=== PATIENT | female | born 1960 | race Caucasian/White ===

== ENCOUNTER 2021-07-06 10:52 | Inpatient (IN) ==
[2021-07-06 11:25] LABS: Basophils # (auto) 0.01 K/uL (0-0.2); Basophils % (auto) 0.2 %; Eosinophils # (auto) 0.02 K/uL (0-0.5); Eosinophils % (auto) 0.4 %; Hemoglobin 13.5 g/dL (12.0-16.0); Lymphocytes # (auto) 1.14 K/uL (1.2-3.4); Mean Corpuscular Hemoglobin 29.9 pg (25-34); Mean Corpuscular Hgb Conc 34.6 g/dL (32-36); Mean Corpuscular Volume 86.5 fL (80-100); Mean Platelet Volume 9.7 fL (7.4-10.4); Monocytes # (auto) 0.49 K/uL (0.11-0.59); Monocytes % (auto) 8.6 %; Neutrophils # (auto) 4.04 K/uL (1.4-6.5); Neutrophils % (auto) 70.8 %; Platelet Count 288 K/uL (130-400); RDW Coefficient of Variation 12.8 % (11.5-14.5); Red Blood Count 4.51 M/uL (4.2-5.4)
[2021-07-06] MEDS ORDERED: SODIUM CHLORIDE 0.9% 1000ML 1,000 ML IV SCH (11:30)
[2021-07-06] MEDS ORDERED: ALBUT/IPRATROP 3MG/0.5MG NEB 3 ML VIAL NEB STA (11:36)
[2021-07-06] MEDS ORDERED: dexAMETHasone 6 MG in SYRINGE 0 ML IV ONE (11:36)
--- NOTE | 2021-07-06 11:36 | Emergency Department Note ---
History of Present Illness General Chief complaint: Respiratory Problems Stated complaint: DIFFICULTY BREATHING (ALLERGIC REACTION TO MEDS?) Time Seen by Provider: 07/06/21 11:05 History of Present Illness Provider complaint: Shortness of breath Onset (ago): day(s) 1 Location: chest Radiation: non-radiation Severity: mild Pain Consistency: + intermittent Current Pain Intensity: 0 Quality: + burning Relieved By: + none Exacerbated By: + medication Associated symptoms: + rash and + shortness of breath; no chest pain, no cough, no fever/chills, no headaches, no malaise or no nausea/vomiting 60-year-old female presents emergency department for shortness of breath. Patient states that on Monday she was diagnosed with a UTI at an urgent care center. Patient states she was started on Macrobid and Azo. Patient states any time she took the Azo she began vomiting. She has been taking her Macrobid as prescribed. She states she woke up this morning and had a rash on her chest and was having difficulty breathing. Patient has not vaccine against COVID-19. Patient reports no hemoptysis. She reports no recent travel. She reports no fever or chest pain. Patient states she is concerned she is having allergic reaction to the Macrobid. Home Medications Medication Instructions Recorded Confirmed Type buspirone 10 mg tablet 10 mg PO TID #270 tab 05/25/21 07/06/21 Rx clobetasol 0.05 % scalp solution 1 applic TOPICAL DAILY PRN #50 ml 05/25/21 07/06/21 Rx hydroxyzine HCl 25 mg tablet 25 mg PO QID #120 tab 05/25/21 07/06/21 Rx atorvastatin 20 mg tablet 20 mg PO QAM 07/06/21 07/06/21 History nitrofurantoin 100 cap PO BID 07/06/21 07/06/21 History monohydrate/macrocrystals 100 mg capsule (Macrobid) omeprazole 20 mg capsule,delayed 20 mg PO QAM 07/06/21 07/06/21 History release phenazopyridine 200 mg tablet 200 mg PO BID 07/06/21 07/06/21 History tamoxifen 20 mg tablet 20 mg PO QAM 07/06/21 07/06/21 History Allergies Allergy/AdvReac Type Severity Reaction Status Date / Time nut - unspecified Allergy Unknown SORE MOUTH Verified 07/06/21 12:34 AND THROAT EDEMA AURY. WITH WALNUTS sulfur colloidal(sulfur Allergy Severe erythema, Uncoded 07/06/21 12:34 sublimed) edema, rash Lisinopril TABS AdvReac Mild Cough Uncoded 07/06/21 12:34 Past Med/Surg History Medical History Acid reflux Breast cancer Surgical History S/P hysterectomy S/P tubal ligation S/P wisdom tooth extraction Family History Father Heart disease Myocardial infarction Mother Diabetes Sister Hypertension Kidney disease Denies family history of Ovarian cancer Prostate cancer Breast cancer Colorectal cancer Cancer Social History Smoking Status: Former smoker Tobacco Type: Cigarettes Age Started Using Tobacco: 15; Age Quit Using Tobacco: 31; packs per day: 0.5; Second Hand Exposure: No; Hx Alcohol Use: Yes Alcohol type: wine and hard liquor Alcohol Intake Frequ ency: 2-3 x/Week Hx Substance Use: No Preferred Language: Maori Communication Ability: Effective Visual Impairment: No Limitations Hearing Ability: Normal marital status: Unknown marital status details: and with a signifcant other at this time Current Living Situation: Significant Other current occupational status: employed 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 Feels Safe at Home: Yes Childhood Exposure to Second-Hand Smoke: Yes Dental Care, Regularly: No Physical Activity Frequency: Does not Exercise Seatbelt Use: always Sunscreen Use: Yes Review of Systems A total of 10 systems reviewed and were otherwise negative Physical Exam Vital Signs Vital Signs - 24 hr 07/06/21 10:52 07/06/21 10:54 07/06/21 11:17 Temperature 36.9 C Temperature Source Temporal Artery Scan Pulse Rate 89 Pulse Rate [Apical] Pulse Rate [Finger] 77 Respiratory Rate 20 18 Respiratory Effort / Characteristics Respiratory Depth Blood Pressure 120/85 Blood Pressure [Right Arm] 127/82 Blood Pressure Mean 96 Blood Pressure Mean [Right Arm] 97 Pulse Oximetry 88 L 91 97 Oxygen Delivery Method Room Air Room Air Nasal Cannula Oxygen Flow Rate 2 Sepsis Recent Fever Within 48 Hours No Sepsis New/Unexplained Change in Mental Status No Sepsis Action Taken by Nursing No Action Required Oxygen Flow Rate - Titration 2 Pulse Oximetry Post Tiitration 92 07/06/21 11:26 07/06/21 11:56 07/06/21 11:59 Temperature Temperature Source Pulse Rate 76 Pulse Rate [Apical] 77 82 Pulse Rate [Finger] Respiratory Rate 18 21 23 Respiratory Effort / Characteristics Spontaneous Respiratory Depth Blood Pressure Blood Pressure [Right Arm] 111/72 Blood Pressure Mean Blood Pressure Mean [Right Arm] 85 Pulse Oximetry 96 97 97 Oxygen Delivery Method Nasal Cannula Nasal Cannula Nasal Cannula Oxygen Flow Rate 2 2 2 Sepsis Recent Fever Within 48 Hours Sepsis New/Unexplained Change in Mental Status Sepsis Action Taken by Nursing Oxygen Flow Rate - Titration Pulse Oximetry Post Tiitration 07/06/21 12:01 07/06/21 12:07 07/06/21 13:07 Temperature Temperature Source Pulse Rate Pulse Rate [Apical] 76 87 Pulse Rate [Finger] Respiratory Rate 24 24 Respiratory Effort / Characteristics Non-Labored Spontaneous Non-Labored Respiratory Depth Normal Normal Blood Pressure Blood Pressure [Right Arm] 125/73 124/74 Blood Pressure Mean Blood Pressure Mean [Right Arm] 90 90 Pulse Oximetry 96 94 Oxygen Delivery Method Nasal Cannula Oxygen Flow Rate 2 Sepsis Recent Fever Within 48 Hours Sepsis New/Unexplained Change in Mental Status Sepsis Action Taken by Nursing Oxygen Flow Rate - Titration Pulse Oximetry Post Tiitration Physical Exam GENERAL: She is oriented to person, place, and time. She appears well-developed and well-nourished. She does not appear distressed. HENT: Exam performed. -Head: Normocephalic and atraumatic. -Right Ear: External ear normal. No mastoid tenderness. -Left Ear: External ear normal. No mastoid tenderness. -Mouth/Throat: The oropharynx is clear and moist. No trismus in the jaw. No dental abscesses or uvula swelling. No oropharyngeal exudate or tonsillar abscesses. No lip or tongue swelling. No uvula swelling. EYES: Conjunctivae and EOM are normal. Pupils are equal, round, and reactive to light. Right eye exhibits no discharge. Left eye exhibits no discharge. No scleral icterus. NECK: Normal range of motion. Neck supple. No JVD present. No spinous process tenderness present. No carotid bruit present. No rigidity. No tracheal deviation and normal range of motion present. No Brudzinski's sign and no Kernig's sign noted. CV: Normal rate, regular rhythm, normal heart sounds and intact distal pulses. There is no peripheral edema. Palpable radial pulses bue. PULM/CHEST: Scant expiratory wheezes. -Chest Wall: She exhibits no tenderness. ABD: The abdomen is soft. Bowel sounds are normal. She has no distension. No mass is present. There is no tenderness. There is no rebound, no guarding, no Cee's sign and no tenderness at McBurney's point. Rovsig negative MUSC/SKEL: Normal range of motion. There is no peripheral edema, tenderness or deformity. LYMPH: No cervical adenopathy. NEURO: She is alert and oriented to person, place, and time. She has normal strength. No cranial nerve deficit or sensory deficit. Coordination and gait normal. GCS eye subscore is 4. GCS verbal subscore is 5. GCS motor subscore is 6. Cerebellar tests wnl. SKIN: Skin is warm and dry. She is not diaphoretic. No rash. No purpura. PSYCH: She has a normal mood and affect. Behavior is normal. Judgment and thought content normal. Course Course 1105: The patient was evaluated in room B7. A complete history and physical exam was performed Cardiac monitoring: An order was placed for continuous cardiac monitoring. The monitor shows a rate of 80 with sinus rhythm Patient was found to be hypoxic on room air. Patient was placed on supplemental oxygen via nasal cannula which improved her oxygen saturation. 1328: Vital signs stable on supplemental oxygen via nasal cannula. Labs show that the patient is positive for COVID-19. Imaging shows no PE but does show Covid pneumonia. Patient was treated with Decadron 6 mg IV push. Patient be admitted to the [facility] service Dr. Cortes notified. Administered Medications Discontinued Medications Albuterol (Albut/Ipratrop 3mg/0.5mg Neb 3 Ml Vial) 3 ml NEB NOW STA Stop: 07/06/21 11:37 Last Admin: 07/06/21 11:56 Dose: 3 ml Documented by: [id number] Dexamethasone Sodium Phosphate (DexamethasonePf 10 Mg/Ml Vial) 6 mg IV ONE ONE Stop: 07/06/21 12:01 Last Admin: 07/06/21 12:03 Dose: 6 mg Documented by: [id number] Sodium Chloride (Nss 1000ml) 1,000 mls @ 999 mls/hr IV .Q1H1M [facility] Stop: 07/06/21 12:30 Last Admin: 07/06/21 12:03 Dose: 999 mls/hr Documented by: [id number] Ioversol (Optiray 320 125ml) 120 ml IV ONCE ONE Stop: 07/06/21 12:37 Last Admin: 07/06/21 12:36 Dose: 120 ml Documented by: [id number] Critical Care Time Critical Care Time: Yes Total Critical Care Time: 59 I have personally spent greater than 59 minutes of critical care time in the direct management of this patient. This includes bedside care, interpretation of diagnostic studies, and testing, discussion with consultants, patient, and family members, and other required patient management activities. This 59 minutes is in excess of all separately billable procedures. Medical Decision Making Laboratory Data Result diagrams: 07/06/21 11:14 07/06/21 11:14 Lab Results 07/06/21 07/06/21 07/06/21 Range/Units 11:14 11:14 11:14 WBC 5.70 (4.8-10.8) K/uL RBC 4.51 (4.2-5.4) M/uL Hgb 13.5 (12.0-16.0) g/dL Hct 39.0 (37-47) % MCV 86.5 (80-100) fL MCH 29.9 (25-34) pg MCHC 34.6 (32-36) g/dL RDW Std Deviation 41.0 (36.4-46.3) fL RDW Coeff of Sharon 12.8 (11.5-14.5) % Plt Count 288 (130-400) K/uL MPV 9.7 (7.4-10.4) fL Immature Gran % (Auto) 0.0 % Neut % (Auto) 70.8 % Lymph % (Auto) 20.0 % Ballard % (Auto) 8.6 % Eos % (Auto) 0.4 % Baso % (Auto) 0.2 % Neut # (Auto) 4.04 (1.4-6.5) K/uL Lymph # (Auto) 1.14 L (1.2-3.4) K/uL Ballard # (Auto) 0.49 (0.11-0.59) K/uL Eos # (Auto) 0.02 (0-0.5) K/uL Baso # (Auto) 0.01 (0-0.2) K/uL Immature Gran # (Auto) 0.00 (0.00-0.02) K/uL PT (9.0-12.0) Seconds INR (0.9-1.1) APTT (21.0-31.0) Seconds PTT Ratio D-Dimer (0-500) ug/L FEU Sodium 136 (136-145) mmol/L Potassium 3.4 L (3.5-5.1) mmol/L Chloride 103 (98-107) mmol/L Carbon Dioxide 25 (21-32) mmol/L Anion Gap 8.0 (3-11) BUN 9 (7-18) mg/dl Creatinine 0.73 (0.6-1.2) mg/dl Est Cr Clr Drug Dosing 90.7 ml/min Est GFR ( Amer) 104.5 ml/min Est GFR (Non-Af Amer) 90.1 ml/min BUN/Creatinine Ratio 12.4 (10-20) Glucose 115 H (70-99) mg/dl Lactate (0.4-2.0) mmol/L Calcium 9.1 (8.5-10.1) mg/dl Magnesium 2.2 (1.8-2.4) mg/dl Total Bilirubin 0.5 (0.2-1) mg/dl AST 50 H (15-37) U/L ALT 58 (12-78) U/L Alkaline Phosphatase 71 (45-117) U/L Troponin I < 0.015 (0-0.045) ng/ml Total Protein 7.4 (6.4-8.2) gm/dl Albumin 3.1 L (3.4-5.0) gm/dl Globulin 4.3 H (2.5-4.0) gm/dl Albumin/Globulin Ratio 0.7 L (0.9-2) Procalcitonin < 0.05 (0-0.5) ng/ml Urine Color Urine Appearance (Clear) Urine pH (4.5-7.5) Ur Specific [place] (1.000-1.030) Urine Protein (Negative) Urine Glucose (UA) (Negative) Urine Ketones (Negative) Urine Blood (Negative) Urine Nitrite (Negative) Urine Bilirubin (Negative) Urine Urobilinogen (Negative) Ur Leukocyte Esterase (Negative) COVID-19 Eval Order SARS-CoV-2 (PCR) (Negative) Influ A Molecular Assay Influ B Molecular Assay 07/06/21 07/06/21 07/06/21 Range/Units 11:14 11:26 11:27 WBC (4.8-10.8) K/uL RBC (4.2-5.4) M/uL Hgb (12.0-16.0) g/dL Hct (37-47) % MCV (80-100) fL MCH (25-34) pg MCHC (32-36) g/dL RDW Std Deviation (36.4-46.3) fL RDW Coeff of Sharon (11.5-14.5) % Plt Count (130-400) K/uL MPV (7.4-10.4) fL Immature Gran % (Auto) % Neut % (Auto) % Lymph % (Auto) % Ballard % (Auto) % Eos % (Auto) % Baso % (Auto) % Neut # (Auto) (1.4-6.5) K/uL Lymph # (Auto) (1.2-3.4) K/uL Ballard # (Auto) (0.11-0.59) K/uL Eos # (Auto) (0-0.5) K/uL Baso # (Auto) (0-0.2) K/uL Immature Gran # (Auto) (0.00-0.02) K/uL PT 9.7 (9.0-12.0) Seconds INR 1.0 (0.9-1.1) APTT 24.2 (21.0-31.0) Seconds PTT Ratio 0.9 D-Dimer 650 H* (0-500) ug/L FEU Sodium (136-145) mmol/L Potassium (3.5-5.1) mmol/L Chloride (98-107) mmol/L Carbon Dioxide (21-32) mmol/L Anion Gap (3-11) BUN (7-18) mg/dl Creatinine (0.6-1.2) mg/dl Est Cr Clr Drug Dosing ml/min Est GFR ( Amer) ml/min Est GFR (Non-Af Amer) ml/min BUN/Creatinine Ratio (10-20) Glucose (70-99) mg/dl Lactate (0.4-2.0) mmol/L Calcium (8.5-10.1) mg/dl Magnesium (1.8-2.4) mg/dl Total Bilirubin (0.2-1) mg/dl AST (15-37) U/L ALT (12-78) U/L Alkaline Phosphatase (45-117) U/L Troponin I (0-0.045) ng/ml Total Protein (6.4-8.2) gm/dl Albumin (3.4-5.0) gm/dl Globulin (2.5-4.0) gm/dl Albumin/Globulin Ratio (0.9-2) Procalcitonin (0-0.5) ng/ml Urine Color Urine Appearance (Clear) Urine pH (4.5-7.5) Ur Specific [place] (1.000-1.030) Urine Protein (Negative) Urine Glucose (UA) (Negative) Urine Ketones (Negative) Urine Blood (Negative) Urine Nitrite (Negative) Urine Bilirubin (Negative) Urine Urobilinogen (Negative) Ur Leukocyte Esterase (Negative) COVID-19 Eval Order Covid19 at [facility] SARS-CoV-2 (PCR) (Negative) Influ A Molecular Assay Cancelled Influ B Molecular Assay Cancelled 07/06/21 07/06/21 07/06/21 Range/Units 11:27 11:58 13:04 WBC (4.8-10.8) K/uL RBC (4.2-5.4) M/uL Hgb (12.0-16.0) g/dL Hct (37-47) % MCV (80-100) fL MCH (25-34) pg MCHC (32-36) g/dL RDW Std Deviation (36.4-46.3) fL RDW Coeff of Sharon (11.5-14.5) % Plt Count (130-400) K/uL MPV (7.4-10.4) fL Immature Gran % (Auto) % Neut % (Auto) % Lymph % (Auto) % Ballard % (Auto) % Eos % (Auto) % Baso % (Auto) % Neut # (Auto) (1.4-6.5) K/uL Lymph # (Auto) (1.2-3.4) K/uL Ballard # (Auto) (0.11-0.59) K/uL Eos # (Auto) (0-0.5) K/uL Baso # (Auto) (0-0.2) K/uL Immature Gran # (Auto) (0.00-0.02) K/uL PT (9.0-12.0) Seconds INR (0.9-1.1) APTT (21.0-31.0) Seconds PTT Ratio D-Dimer (0-500) ug/L FEU Sodium (136-145) mmol/L Potassium (3.5-5.1) mmol/L Chloride (98-107) mmol/L Carbon Dioxide (21-32) mmol/L Anion Gap (3-11) BUN (7-18) mg/dl Creatinine (0.6-1.2) mg/dl Est Cr Clr Drug Dosing ml/min Est GFR ( Amer) ml/min Est GFR (Non-Af Amer) ml/min BUN/Creatinine Ratio (10-20) Glucose (70-99) mg/dl Lactate 1.5 (0.4-2.0) mmol/L Calcium (8.5-10.1) mg/dl Magnesium (1.8-2.4) mg/dl Total Bilirubin (0.2-1) mg/dl AST (15-37) U/L ALT (12-78) U/L Alkaline Phosphatase (45-117) U/L Troponin I (0-0.045) ng/ml Total Protein (6.4-8.2) gm/dl Albumin (3.4-5.0) gm/dl Globulin (2.5-4.0) gm/dl Albumin/Globulin Ratio (0.9-2) Procalcitonin (0-0.5) ng/ml Urine Color Yellow Urine Appearance Clear (Clear) Urine pH 6.5 (4.5-7.5) Ur Specific [place] 1.012 (1.000-1.030) Urine Protein Negative (Negative) Urine Glucose (UA) Negative (Negative) Urine Ketones Trace H (Negative) Urine Blood Negative (Negative) Urine Nitrite Negative (Negative) Urine Bilirubin Negative (Negative) Urine Urobilinogen Negative (Negative) Ur Leukocyte Esterase Negative (Negative) COVID-19 Eval Order SARS-CoV-2 (PCR) POSITIVE A* (Negative) Influ A Molecular Assay Influ B Molecular Assay Imaging Data Radiologist's Impression: Chest X-Ray 07/06/21 11:17 XR chest 1V portable CLINICAL HISTORY: SEPSIS. . Evaluate cardiopulmonary status COMPARISON STUDY: 10/05/2014 TECHNIQUE: 1 view of the chest FINDINGS: Single frontal view of the chest demonstrates the cardiomediastinal silhouette to be within normal limits. Patchy interstitial and alveolar opacities are present bilaterally. The findings are most characteristic of a viral type pneumonitis. Covid 19 pneumonia should be excluded. There is no evidence for pleural effusion. There is no evidence for vascular congestion. There is no acute osseous pathology. IMPRESSION: Patchy interstitial and alveolar opacities bilaterally characteristic of a viral type pneumonitis and probable Covid 19 pneumonia. ACT 112: Negative or not required by law. Electronically signed by: Tray Posey M.D. 07/06/2021 11:55 AM Chest CTA 07/06/21 12:00 CT angio chest PE protocol CLINICAL HISTORY: Shortness of breath for 3 days. Evaluate for pulmonary embolus. COMPARISON STUDY: Portable chest from 07/06/2021 CT DOSE: 441.41 mGy.cm TECHNIQUE: CT Angio of the chest was performed.followed by image post processing with coronal, and sagittal MIP reformats. Contrast Volume: Optiray 320, 120 ml FINDINGS: Vasculature: There is homogeneous perfusion of the pulmonary vasculature bilaterally. No intraluminal filling defects or evidence for pulmonary embolus is seen. Airway: The airway is clear. No endobronchial lesion is identified. Lungs: Patchy groundglass opacities are present throughout both lungs characteristic of a viral type pneumonitis and Covid 19 pneumonia. The lungs are otherwise clear of confluent alveolar opacities, air bronchograms or pulmonary nodules. Pleura: There is no evidence for pleural effusion. There is no evidence for pneumothorax. Mediastinum: There is no evidence for pathologic adenopathy. The heart size is within normal limits and there is no evidence for aortic dilatation. There is no evidence for pericardial effusion. Upper abdomen:The adrenal glands are normal bilaterally. Osseous structures: There is no acute osseous pathology. Impression: 1. No CTA evidence for pulmonary embolus. 2. Patchy groundglass opacities are present throughout both lungs characteristic of a viral type pneumonitis and Covid 19 pneumonia. ACT 112: Negative or not required by law. Electronically signed by: Tray Posey M.D. 07/06/2021 12:54 PM ECG Data Indication: + SOB/dyspnea Rate (beats per minute): 78 Rhythm: + normal sinus ECG Intervals/blocks: + Normal QRS, + Normal [place] and + Normal QT-c ECG ST segments: + Normal ST segments ECG Findings: + [facility] Narrative 1105: The patient was evaluated in room B7. A complete history and physical exam was performed Cardiac monitoring: An order was placed for continuous cardiac monitoring. The monitor shows a rate of 80 with sinus rhythm Patient was found to be hypoxic on room air. Patient was placed on supplemental oxygen via nasal cannula which improved her oxygen saturation. 1328: Vital signs stable on supplemental oxygen via nasal cannula. Labs show t hat the patient is positive for COVID-19. Imaging shows no PE but does show Covid pneumonia. Patient was treated with Decadron 6 mg IV push. Patient be admitted to the [facility] service Dr. Cortes notified. Impression & Plan Hypoxia, Pneumonia due to [facility] Discharge Plan Visit Data Chief Complaint: Respiratory Problems Stated Complaint: DIFFICULTY BREATHING (ALLERGIC REACTION TO MEDS?) ED Provider: Tam Grier Discharge Problem: Hypoxia, Pneumonia due to 2018-nCoV Patient Disposition: Admitted As Inpatient Forms Stand Alone Forms: My [facility] Prescriptions Prescriptions: No Action buspirone 10 mg tablet 10 mg PO TID Qty: 270 RF: 3 clobetasol 0.05 % solution 1 applic topical DAILY PRN (Reason: psoriasis) Qty: 50 RF: 0 hydroxyzine HCl 25 mg tablet 25 mg PO QID Qty: 120 RF: 5 phenazopyridine 200 mg tablet 200 mg PO BID RF: 0 nitrofurantoin monohyd/m-cryst [Macrobid] 100 mg capsule 100 cap PO BID RF: 0 atorvastatin 20 mg tablet 20 mg PO QAM RF: 0 omeprazole 20 mg capsule,delayed release(DR/EC) 20 mg PO QAM RF: 0 tamoxifen 20 mg tablet 20 mg PO QAM RF: 0 Referrals Referrals: Andrade Johnson DO [Primary Care Provider] -
[2021-07-06 11:41] LABS: Partial Thromboplastin Ratio 0.9; Partial Thromboplastin Time 24.2 Seconds (21.0-31.0); Prothrombin Time 9.7 Seconds (9.0-12.0)
[2021-07-06 11:46] LABS: Alanine Aminotransferase 58 U/L (12-78); Albumin Level 3.1 gm/dl (3.4-5.0); Aspartate Aminotransferase 50 U/L (15-37); BUN Creatinine Ratio 12.4 (10-20); Blood Urea Nitrogen 9 mg/dl (7-18); Calcium 9.1 mg/dl (8.5-10.1); Carbon Dioxide 25 mmol/L (21-32); Chloride 103 mmol/L (98-107); Creatinine Clr Calc Pharmacy 90.7 ml/min; D Dimer 650 ug/L FEU (0-500); Est GFR (African American) 104.5 ml/min; Est GFR (Non-African American) 90.1 ml/min; Glucose 115 mg/dl (70-99); Magnesium 2.2 mg/dl (1.8-2.4); Potassium 3.4 mmol/L (3.5-5.1); Sodium 136 mmol/L (136-145)
[2021-07-06 11:51] LABS: Albumin Globulin Ratio 0.7 (0.9-2); Alkaline Phosphatase 71 U/L (45-117); Bilirubin,Total 0.5 mg/dl (0.2-1); Globulin 4.3 gm/dl (2.5-4.0); Total Protein 7.4 gm/dl (6.4-8.2); Troponin I < 0.015 ng/ml (0-0.045)
--- NOTE | 2021-07-06 11:56 | XRay Report ---
XR chest 1V portable CLINICAL HISTORY: SEPSIS. . Evaluate cardiopulmonary status COMPARISON STUDY: 10/05/2014 TECHNIQUE: 1 view of the chest FINDINGS: Single frontal view of the chest demonstrates the cardiomediastinal silhouette to be within normal li mits. Patchy interstitial and alveolar opacities are present bilaterally. The findings are most elizabeth cteristic of a viral type pneumonitis. Covid 19 pneumonia should be excluded. There is no evidence fo r pleural effusion. There is no evidence for vascular congestion. There is no acute osseous pathology . IMPRESSION: Patchy interstitial and alveolar opacities bilaterally characteristic of a viral type pne umonitis and probable Covid 19 pneumonia. ACT 112: Negative or not required by law. Electronically signed by: Tray Posey M.D. 07/06/2021 11:55 AM
[2021-07-06] MEDS ORDERED: dexAMETHasone**PF** 10 MG/ML VIAL IV ONE (12:00)
[2021-07-06] MEDS ORDERED: OPTIRAY 320 125ml IV ONE (12:36)
--- NOTE | 2021-07-06 12:55 | CT Scan Report ---
CT angio chest PE protocol CLINICAL HISTORY: Shortness of breath for 3 days. Evaluate for pulmonary embolus. COMPARISON STUDY: Portable chest from 07/06/2021 CT DOSE: 441.41 mGy.cm TECHNIQUE: CT Angio of the chest was performed.followed by image post processing with coronal, and s agittal MIP reformats. Contrast Volume: Optiray 320, 120 ml FINDINGS: Vasculature: There is homogeneous perfusion of the pulmonary vasculature bilaterally. No intraluminal filling defects or evidence for pulmonary embolus is seen. Airway: The airway is clear. No endobronchial lesion is identified. Lungs: Patchy groundglass opacities are present throughout both lungs characteristic of a viral type pneumonitis and Covid 19 pneumonia. The lungs are otherwise clear of confluent alveolar opacities, ai r bronchograms or pulmonary nodules. Pleura: There is no evidence for pleural effusion. There is no evidence for pneumothorax. Mediastinum: There is no evidence for pathologic adenopathy. The heart size is within normal limits and there is no evidence for aortic dilatation. There is no evidence for pericardial effusion. Upper abdomen:The adrenal glands are normal bilaterally. Osseous structures: There is no acute osseous pathology. Impression: 1. No CTA evidence for pulmonary embolus. 2. Patchy groundglass opacities are present throughout both lungs characteristic of a viral type pneu monitis and Covid 19 pneumonia. ACT 112: Negative or not required by law. Electronically signed by: Tray Posey M.D. 07/06/2021 12:54 PM
[2021-07-06 13:17] LABS: Appearance Urine Clear (Clear); Bilirubin Urine Negative (Negative); Blood Urine Negative (Negative); Color Urine Yellow; Glucose Urine UA Negative (Negative); Ketones Urine Trace (Negative); Leukocyte Esterase Urine Negative (Negative); Nitrite Urine Negative (Negative); Protein Urine Negative (Negative); Specific Gravity Urine 1.012 (1.000-1.030); Urobilinogen Urine Negative (Negative); pH Urine 6.5 (4.5-7.5)
--- NOTE | 2021-07-06 13:21 | History & Physical Report ---
Date of Service July 06, 2021 Assessment & Plan (1) COVID-19: Plan: Unvaccinated Dexamethasone 6mg IV daily as O2 sats < 94% Start Remdesivir as discussed with patient as good candidate for this since 3 days of symptoms and on low amount of O2 Does not currently meet criteria for baricitinib Prone as able (2) UTI (urinary tract infection): Plan: Possible diagnosis as UA positive at [facility] on Sat with symptoms suggestive of this. Unable to get through to [facility] via phone on admission but will place HIM request for these results UA negative on admission but may recur if she only took 3 days of nitrofurantoin Will hold on antibiotics at the current time (3) Hypercholesterolemia: Plan: Continue aotrvastatin 20mg PO daily (4) Anxiety: Plan: Continue Buspar 10mg PO TID and hydroxyzine PRN (5) History of breast cancer: Plan: Lumpectomy on left side around 10 years ago. On tamoxifen since then. Will continue. Plan: VTE Prophylaxis - Lovenox 40mg SQ BID Diet - regular Disposition - admit to med/surg Admission and Anticipated Discharge Date Admission Date: July 06, 2021 History of Present Illness Chief Complaint: Shortness of breath Primary Care Provider: DO Luda Oconnell Tracy is a 60 year old female who presents to the ER with rash, shortness of breath and fatigue. She is unvaccinated for COVID-19. She reports her symptoms started this morning on waking up. Although initial symptoms started with lower abdominal and back pain on Monday and [facility] she though she had a UTI. No dysuria, fever or chills. She reportedly tested positive on UA and was started on Pyridium and Macrobid. Her symptoms initially were improving until today. She thought she may be having an allergic reaction to the nitrofurantoin therefore on calling her PCP was advised to come to the ER. She denies any fever, chills, sinus pain, chest pain, abdominal pain, nausea, vomiting, diarrhea or constipation. She does report a mild dry cough. No rash was noticed by the ER physician or myself. In the ER CXR and CT were consisted with COVID-19, SARS-COV-2 PCR positive. She was started on dexamethasone as requiring 2LPM O2 to maintain O2 sats > 94% and referred to medicine for admission and ongoing management of COVID-19. Allergies Allergy/AdvReac Type Severity Reaction Status Date / Time nut - unspecified Allergy Unknown SORE MOUTH Verified 07/06/21 12:34 AND THROAT EDEMA AURY. WITH WALNUTS sulfur colloidal(sulfur Allergy Severe erythema, Uncoded 07/06/21 12:34 sublimed) edema, rash Lisinopril TABS AdvReac Mild Cough Uncoded 07/06/21 12:34 Home Medications Medication Instructions Recorded Confirmed Type buspirone 10 mg tablet 10 mg PO TID #270 tab 05/25/21 07/06/21 Rx clobetasol 0.05 % scalp solution 1 applic TOPICAL DAILY PRN #50 ml 05/25/21 07/06/21 Rx hydroxyzine HCl 25 mg tablet 25 mg PO QID #120 tab 05/25/21 07/06/21 Rx atorvastatin 20 mg tablet 20 mg PO QAM 07/06/21 07/06/21 History nitrofurantoin 100 cap PO BID 07/06/21 07/06/21 History monohydrate/macrocrystals 100 mg capsule (Macrobid) omeprazole 20 mg capsule,delayed 20 mg PO QAM 07/06/21 07/06/21 History release phenazopyridine 200 mg tablet 200 mg PO BID 07/06/21 07/06/21 History tamoxifen 20 mg tablet 20 mg PO QAM 07/06/21 07/06/21 History Past Med/Surg History Medical History Acid reflux Breast cancer Surgical History S/P hysterectomy S/P tubal ligation S/P wisdom tooth extraction Family History Father Heart disease Myocardial infarction Mother Diabetes Sister Hypertension Kidney disease Denies family history of Ovarian cancer Prostate cancer Breast cancer Colorectal cancer Cancer Social History Smoking Status: Former smoker Tobacco Type: Cigarettes Age Started Using Tobacco: 15; Age Quit Using Tobacco: 31; packs per day: 0.5; Second Hand Exposure: No; Hx Alcohol Use: Yes Alcohol type: wine and hard liquor Alcohol Intake Frequency: 2-3 x/Week Hx Substance Use: No Preferred Language: Jordanian Communication Ability: Effective Visual Impairment: No Limitations Hearing Ability: Normal Lieutenant Governor Required: No Beliefs That Will Affect Care: None marital status: Unknown marital status details: and with a signifcant other at this time Current Living Situation: Significant Other current occupational status: employed current occupation: [employer] Feels Safe at Home: Yes Childhood Exposure to Second-Hand Smoke: Yes Dental Care, Regularly: No Physical Activity Frequency: Does not Exercise Seatbelt Use: always Sunscreen Use: Yes Assistive Devices: Oxygen - Continuous Review of Systems Review of Systems: All systems reviewed & are unremarkable except as noted in HPI & below Physical Exam Constitutional: well developed, + acute distress and + obese Eyes: PERRL, conjunctivae normal, anicteric sclerae ENMT: external ear and nose normal, oropharynx normal Neck: trachea midline, no thyromegaly Respiratory: normal respiratory effort and able to speak in complete sentences Auscultation: + diminished lung sounds (throughout); no crackles and no wheezes Cardiovascular: RRR, no murmur, no edema Gastrointestinal (Abdomen): Inspection/Auscultation: abdomen normal to inspection and normal bowel sounds Percussion/Palpation: + abdomen tender (mild RLQ tenderness on deep palpation) and abdomen soft; no guarding and abdomen not rigid Musculoskeletal: no cyanosis or clubbing, extremities motor strength 5/5 Skin: no rashes, warm and dry Neurologic: moves all extremities and awake; not confused Psychiatric: A+Ox3, euthymic affect Results & Data Results & Data ([facility]) Vital Signs (Past 12 Hours) Vital Signs Temp Pulse Pulse Pulse Resp BP BP 07/06/21 13:07 87 24 124/74 07/06/21 12:07 76 24 125/73 07/06/21 11:59 82 23 111/72 07/06/21 11:56 77 21 07/06/21 11:26 76 18 07/06/21 11:17 77 18 127/82 07/06/21 10:54 36.9 C 89 20 120/85 07/06/21 10:52 Pulse Ox 07/06/21 13:07 94 07/06/21 12:07 96 07/06/21 11:59 97 07/06/21 11:56 97 07/06/21 11:26 96 07/06/21 11:17 97 07/06/21 10:54 91 07/06/21 10:52 88 L Laboratory Results Abnormal lab results 07/06/21 07/06/21 07/06/21 Range/Units 11:14 11:14 11:14 Lymph # (Auto) 1.14 L (1.2-3.4) K/uL D-Dimer 650 H* (0-500) ug/L FEU Potassium 3.4 L (3.5-5.1) mmol/L Glucose 115 H (70-99) mg/dl AST 50 H (15-37) U/L Albumin 3.1 L (3.4-5.0) gm/dl Globulin 4.3 H (2.5-4.0) gm/dl Albumin/Globulin Ratio 0.7 L (0.9-2) Urine Ketones (Negative) SARS-CoV-2 (PCR) (Negative) 07/06/21 07/06/21 Range/Units 11:27 13:04 Lymph # (Auto) (1.2-3.4) K/uL D-Dimer (0-500) ug/L FEU Potassium (3.5-5.1) mmol/L Glucose (70-99) mg/dl AST (15-37) U/L Albumin (3.4-5.0) gm/dl Globulin (2.5-4.0) gm/dl Albumin/Globulin Ratio (0.9-2) Urine Ketones Trace H (Negative) SARS-CoV-2 (PCR) POSITIVE A* (Negative) Diagnostic Findings XR chest 1V portable CLINICAL HISTORY: SEPSIS. . Evaluate cardiopulmonary status COMPARISON STUDY: 10/05/2014 TECHNIQUE: 1 view of the chest FINDINGS: Single frontal view of the chest demonstrates the cardiomediastinal silhouette to be within normal limits. Patchy interstitial and alveolar opacities are present bilaterally. The findings are most characteristic of a viral type pneumonitis. Covid 19 pneumonia should be excluded. There is no evidence for pleural effusion. There is no evidence for vascular congestion. There is no acute osseous pathology. IMPRESSION: Patchy interstitial and alveolar opacities bilaterally characteristic of a viral type pneumonitis and probable Covid [address] angio chest PE protocol CLINICAL HISTORY: Shortness of breath for 3 days. Evaluate for pulmonary embolus. COMPARISON STUDY: Portable chest from 07/06/2021 CT DOSE: 441.41 mGy.cm TECHNIQUE: CT Angio of the chest was performed.followed by image post processing with coronal, and sagittal MIP reformats. Contrast Volume: Optiray 320, 120 ml FINDINGS: Vasculature: There is homogeneous perfusion of the pulmonary vasculature bilat erally. No intraluminal filling defects or evidence for pulmonary embolus is seen. Airway: The airway is clear. No endobronchial lesion is identified. Lungs: Patchy groundglass opacities are present throughout both lungs characteristic of a viral type pneumonitis and Covid 19 pneumonia. The lungs are otherwise clear of confluent alveolar opacities, air bronchograms or pulmonary nodules. Pleura: There is no evidence for pleural effusion. There is no evidence for pneumothorax. Mediastinum: There is no evidence for pathologic adenopathy. The heart size is within normal limits and there is no evidence for aortic dilatation. There is no evidence for pericardial effusion. Upper abdomen:The adrenal glands are normal bilaterally. Osseous structures: There is no acute osseous pathology. Impression: 1. No CTA evidence for pulmonary embolus. 2. Patchy groundglass opacities are present throughout both lungs characteristic of a viral type pneumonitis and Covid 19 pneumonia. Medications Administered ER Medications Given: NSS 1L bolus Duoneb 3ml Dexamethasone 6mg IV ECG Indication: SOB/dyspnea Rate (beats per minute): 78 Rhythm: normal sinus Findings: + other (left ventricular hypertrophy); no acute ischemic change Comparison ECG Date: from (Oct 05, 2014) Change: no significant change Code Status & VTE Plan Code Status Full VTE Prophylaxis Plan VTE Prophylaxis will be ordered: Yes PG Care Time/CCT Total # of Minutes Spent Total Time Spent with Patient: Total time spent is greater than 50% in coordination of care (as documented) at patient's floor/unit and/or counseling patient: Coding Level of Care Code 22962 Initial Inpt Care Lvl 3 Diagnoses COVID-19 U07.1 Hypercholesterolemia E78.00 Anxiety F41.9 History of breast cancer Z85.3 UTI (urinary tract infection) N39.0
--- NOTE | 2021-07-06 13:49 | Electrocardiogram Report ---
Test Reason : Blood Pressure : / mmHG Vent. Rate : 078 BPM Atrial Rate : 078 BPM P-R Int : 198 ms QRS Dur : 086 ms QT Int : 404 ms P-R-T Axes : 024 -13 011 degrees QTc Int : 460 ms Normal sinus rhythm Possible Left atrial enlargement Left ventricular hypertrophy Abnormal ECG When compared with ECG of 05-OCT-2014 13:56, No significant change was found Confirmed by Imtiaz Calvert ([id number]) on 07/06/2021 1:48:46 PM Referred By: Andrade Johnson Confirmed By:Imtiaz Calvert
[2021-07-06] MEDS ORDERED: POTASSIUM CHLORIDE CRTAB 20 MEQ TABCR PO STA (14:12)
[2021-07-06] MEDS ORDERED: REMDESIVIR 200 MG in SODIUM CHLORIDE 0.9% 210 ML IV STA (14:13)
[2021-07-06] MEDS ORDERED: SODIUM CHLORIDE 0.9% 10ML FLUSH IV SCH ×2 (14:15→15:30)
[2021-07-06] MEDS ORDERED: POLYETHYLENE (MIRALAX) 17 GM PACK PO PRN (15:47)
[2021-07-06] MEDS ORDERED: ACETAMINOPHEN 325 MG TAB PO PRN (15:47)
[2021-07-06] MEDS ORDERED: ONDANSETRON INJ 2 MG/ML 2 ML VIAL IV PRN (15:47)
[2021-07-06] MEDS ORDERED: ALUMINUM/MAGNESIUM SUSP 30 ML UDC PO PRN (15:47)
[2021-07-06] MEDS: busPIRone 5 MG TAB PO SCH ×2 (16:47→21:43)
[2021-07-06] MEDS ORDERED: hydrOXYzine HCl 25 MG TAB PO PRN (17:31)
[2021-07-06] MEDS: ENOXAPARIN INJ 40 MG/0.4 ML SYR SQ SCH (21:43)
[2021-07-07 06:18] LABS: Basophils # (auto) 0.02 K/uL (0-0.2); Basophils % (auto) 0.5 %; Hematocrit (blood only) 35.8 % (37-47); Hemoglobin 12.2 g/dL (12.0-16.0); Immature Granulocytes # (auto) 0.01 K/uL (0.00-0.02); Immature Granulocytes % (auto) 0.2 %; Lymphocytes # (auto) 1.07 K/uL (1.2-3.4); Lymphocytes % (auto) 25.7 %; Mean Corpuscular Hemoglobin 30.3 pg (25-34); Mean Corpuscular Hgb Conc 34.1 g/dL (32-36); Mean Corpuscular Volume 88.8 fL (80-100); Mean Platelet Volume 9.8 fL (7.4-10.4); Monocytes # (auto) 0.49 K/uL (0.11-0.59); Monocytes % (auto) 11.8 %; Neutrophils # (auto) 2.57 K/uL (1.4-6.5); Neutrophils % (auto) 61.8 %; Platelet Count 276 K/uL (130-400); RDW Coefficient of Variation 12.9 % (11.5-14.5); RDW Standard Deviation 41.6 fL (36.4-46.3); Red Blood Count 4.03 M/uL (4.2-5.4); White Blood Count 4.16 K/uL (4.8-10.8)
[2021-07-07 06:51] LABS: Albumin Level 2.5 gm/dl (3.4-5.0); BUN Creatinine Ratio 29.3 (10-20); Calcium 9.1 mg/dl (8.5-10.1); Creatinine Clr Calc Pharmacy 147.2 ml/min; Est GFR (African American) 127.1 ml/min; Est GFR (Non-African American) 109.7 ml/min; Potassium 4.1 mmol/L (3.5-5.1)
[2021-07-07 06:54] LABS: Albumin Globulin Ratio 0.7 (0.9-2); Bilirubin,Total 0.4 mg/dl (0.2-1); Globulin 3.8 gm/dl (2.5-4.0); Total Protein 6.3 gm/dl (6.4-8.2)
[2021-07-07] MEDS: TAMOXIFEN CITRATE 10 MG TABLET PO SCH (07:56)
[2021-07-07] MEDS: ATORVASTATIN 20 MG TAB PO SCH (07:57)
[2021-07-07] MEDS: ENOXAPARIN INJ 40 MG/0.4 ML SYR SQ SCH ×3 (07:57→20:37)
[2021-07-07] MEDS: busPIRone 5 MG TAB PO SCH ×3 (07:58→19:59)
[2021-07-07] MEDS: PANTOprazole 40 MG TAB PO SCH (07:58)
[2021-07-07] MEDS: dexAMETHasone 6 MG in SYRINGE 0 ML IV SCH (08:00)
--- NOTE | 2021-07-07 11:31 | Hospitalist Progress Note ---
Date of Service July 07, 2021 Assessment & Plan (1) COVID-19: Plan: Dexamethasone 6mg IV daily, day 2 Remdesivir daily, day 2 incentive spirometer supplemental oxygen, only on 2L, no distress or tachypnea (2) Acute respiratory failure with hypoxia: Plan: requiring 2L NC, this is due to pneumonia titrate down to room air as tolerated (3) UTI (urinary tract infection): Plan: Possible diagnosis as UA positive at [facility] on Sat with symptoms suggestive of this. Unable to get through to [facility] via phone on admission but will place HIM request for these results UA negative on admission but may recur if she only took 3 days of nitrofurantoin Will hold on antibiotics at the current time (4) Hypercholesterolemia: Plan: Continue aotrvastatin 20mg PO daily (5) Anxiety: Plan: Continue Buspar 10mg PO TID and hydroxyzine PRN (6) History of breast cancer: Plan: Lumpectomy on left side around 10 years ago. On tamoxifen since then. Will continue. Plan: VTE Prophylaxis - Lovenox 40mg SQ BID Diet - regular Disposition - admit to med/surg Admission and Anticipated Discharge Date Admission Date: July 06, 2021 Subjective patient feeling well, much better than yesterday, stable on 2L NC confirmed she only had symptoms for a few days, discussed that the CT chest shows pneumonia appetite is good, drinking well, no fever, no diarrhea she is hoping to get out of the hospital soon, discussed that if she is on room air tomorrow she can go Review of Systems Review of Systems: All systems reviewed & are unremarkable except as noted in Subjective Physical Exam Physical Exam: General: well developed, well nourished, no acute distress, comfortable Neck: supple, trachea midline, normal thyroid Lungs: clear to auscultation bilaterally, normal respiratory effort, no accessory muscle use, no distress Heart: regular S1 and S2, no murmur, peripheral pulses normal, capillary refill normal, no edema Abdomen: soft, NT, ND, + BS, no hepatomegaly, normal to percussion Extremities: normal in appearance, no cyanosis, no petechiae, strength is 5/5 bilaterally Neuro: awake, cooperative, moves all extremities, no focal motor deficits, CN II-XII intact, sensation in extremities intact, normal speech Skin: warm, dry, no rash, normal turgor Psych: Awake, alert oriented x 3, euthymic affect Results & Data Results & Data ([facility]) Vital Signs (Past 12 Hours) Vital Signs Temp Pulse Resp BP Pulse Ox 07/07/21 07:51 36.4 C L 75 16 135/86 93 07/06/21 23:32 36.9 C 63 14 134/81 95 Laboratory Results Laboratory Results - last 24 hr 07/06/21 07/06/21 07/06/21 11:14 11:14 11:14 WBC RBC Hgb Hct MCV MCH MCHC RDW Std Deviation RDW Coeff of Sharon Plt Count MPV Immature Gran % (Auto) Neut % (Auto) Lymph % (Auto) [place] % (Auto) Eos % (Auto) Baso % (Auto) Neut # (Auto) Lymph # (Auto) [place] # (Auto) Eos # (Auto) Baso # (Auto) Immature Gran # (Auto) PT 9.7 INR 1.0 APTT 24.2 PTT Ratio 0.9 D-Dimer 650 H* Sodium 136 Potassium 3.4 L Chloride 103 Carbon Dioxide 25 Anion Gap 8.0 BUN 9 Creatinine 0.73 Est Cr Clr Drug Dosing 90.7 Est GFR ( Amer) 104.5 Est GFR (Non-Af Amer) 90.1 BUN/Creatinine Ratio 12.4 Glucose 115 H Lactate Calcium 9.1 Magnesium 2.2 Total Bilirubin 0.5 AST 50 H ALT 58 Alkaline Phosphatase 71 Troponin I < 0.015 C-Reactive Protein Total Protein 7.4 Albumin 3.1 L Globulin 4.3 H Albumin/Globulin Ratio 0.7 L Procalcitonin < 0.05 Urine Color Urine Appearance Urine pH Ur Specific Ashley Urine Protein Urine Glucose (UA) Urine Ketones Urine Blood Urine Nitrite Urine Bilirubin Urine Urobilinogen Ur Leukocyte Esterase SARS-CoV-2 (PCR) Influenza Type A Ag Influ A Molecular Assay Influenza Type B Ag Influ B Molecular Assay 07/06/21 07/06/21 07/06/21 11:14 11:26 11:26 WBC RBC Hgb Hct MCV MCH MCHC RDW Std Deviation RDW Coeff of Sharon Plt Count MPV Immature Gran % (Auto) Neut % (Auto) Lymph % (Auto) [place] % (Auto) Eos % (Auto) Baso % (Auto) Neut # (Auto) Lymph # (Auto) [place] # (Auto) Eos # (Auto) Baso # (Auto) Immature Gran # (Auto) PT INR APTT PTT Ratio D-Dimer Sodium Potassium Chloride Carbon Dioxide Anion Gap BUN Creatinine Est Cr Clr Drug Dosing Est GFR ( Amer) Est GFR (Non-Af Amer) BUN/Creatinine Ratio Glucose Lactate Calcium Magnesium Total Bilirubin AST ALT Alkaline Phosphatase Troponin I C-Reactive Protein 6.29 H Total Protein Albumin Globulin Albumin/Globulin Ratio Procalcitonin Urine Color Urine Appearance Urine pH Ur Specific Ashley Urine Protein Urine Glucose (UA) Urine Ketones Urine Blood Urine Nitrite Urine Bilirubin Urine Urobilinogen Ur Leukocyte Esterase SARS-CoV-2 (PCR) Influenza Type A Ag Neg for Influ A Influ A Molecular Assay Cancelled Influenza Type B Ag Neg for Influ B Influ B Molecular Assay Cancelled 07/06/21 07/06/21 07/06/21 11:27 11:58 13:04 WBC RBC Hgb Hct MCV MCH MCHC RDW Std Deviation RDW Coeff of Sharon Plt Count MPV Immature Gran % (Auto) Neut % (Auto) Lymph % (Auto) [place] % (Auto) Eos % (Auto) Baso % (Auto) Neut # (Auto) Lymph # (Auto) [place] # (Auto) Eos # (Auto) Baso # (Auto) Immature Gran # (Auto) PT INR APTT PTT Ratio D-Dimer Sodium Potassium Chloride Carbon Dioxide Anion Gap BUN Creatinine Est Cr Clr Drug Dosing Est GFR ( Amer) Est GFR (Non-Af Amer) BUN/Creatinine Ratio Glucose Lactate 1.5 Calcium Magnesium Total Bilirubin AST ALT Alkaline Phosphatase Troponin I C-Reactive Protein Total Protein Albumin Globulin Albumin/Globulin Ratio Procalcitonin Urine Color Yellow Urine Appearance Clear Urine pH 6.5 Ur Specific Ashley 1.012 Urine Protein Negative Urine Glucose (UA) Negative Urine Ketones Trace H Urine Blood Negative Urine Nitrite Negative Urine Bilirubin Negative Urine Urobilinogen Negative Ur Leukocyte Esterase Negative SARS-CoV-2 (PCR) POSITIVE A* Influenza Type A Ag Influ A Molecular Assay Influenza Type B Ag Influ B Molecular Assay 07/07/21 07/07/21 05:55 05:55 WBC 4.16 L RBC 4.03 L Hgb 12.2 Hct 35.8 L MCV 88.8 MCH 30.3 MCHC 34.1 RDW Std Deviation 41.6 RDW Coeff of Sharon 12.9 Plt Count 276 MPV 9.8 Immature Gran % (Auto) 0.2 Neut % (Auto) 61.8 Lymph % (Auto) 25.7 [place] % (Auto) 11.8 Eos % (Auto) 0.0 Baso % (Auto) 0.5 Neut # (Auto) 2.57 Lymph # (Auto) 1.07 L [place] # (Auto) 0.49 Eos # (Auto) 0.00 Baso # (Auto) 0.02 Immature Gran # (Auto) 0.01 PT INR APTT PTT Ratio D-Dimer Sodium 144 D Potassium 4.1 D Chloride 113 H Carbon Dioxide 24 Anion Gap 7.0 BUN 13 Creatinine 0.45 L Est Cr Clr Drug Dosing 147.2 Est GFR ( Amer) 127.1 Est GFR (Non-Af Amer) 109.7 BUN/Creatinine Ratio 29.3 H Glucose 98 Lactate Calcium 9.1 Magnesium Total Bilirubin 0.4 AST 31 ALT 44 Alkaline Phosphatase 56 Troponin I C-Reactive Protein Total Protein 6.3 L Albumin 2.5 L Globulin 3.8 Albumin/Globulin Ratio 0.7 L Procalcitonin Urine Color Urine Appearance Urine pH Ur Specific Ashley Urine Protein Urine Glucose (UA) Urine Ketones Urine Blood Urine Nitrite Urine Bilirubin Urine Urobilinogen Ur Leukocyte Esterase SARS-CoV-2 (PCR) Influenza Type A Ag Influ A Molecular Assay Influenza Type B Ag Influ B Molecular Assay Medications Administered Current Inpatient Medications Acetaminophen (Acetaminophen 325 Mg Tab) 650 mg PO Q4H PRN PRN Reason: pain/fever Stop: 08/05/21 15:46 Al Hydrox/Mg Hydrox/Simethicone (Aluminum/Magnesium Susp 30 Ml Udc) 30 ml PO Q6H PRN PRN Reason: Dyspepsia Stop: 08/05/21 15:46 Atorvastatin Calcium (Atorvastatin 20 Mg Tab) 20 mg PO QAM [facility] Stop: 08/06/21 08:59 Last Admin: 07/07/21 07:57 Dose: 20 mg Documented by: Buspirone HCl (Buspirone 5 Mg Tab) 10 mg PO TID [facility] Stop: 08/05/21 15:46 Last Admin: 07/07/21 07:58 Dose: 10 mg Documented by: Enoxaparin Sodium (Enoxaparin Inj 40 Mg/0.4 Ml Syr) 40 mg SQ BID [facility] Stop: 08/05/21 20:59 Last Admin: 07/07/21 07:57 Dose: Not Given Documented by: Hydroxyzine HCl (Hydroxyzine Hcl 25 Mg Tab) 25 mg PO QID PRN PRN Reason: anxiety Stop: 08/05/21 20:59 Dexamethasone 6 mg/ Syringe 1.5 mls @ 1 mls/min IV DAILY [facility] Stop: 07/16/21 08:59 Last Admin: 07/07/21 08:00 Dose: 1 mls/min Documented by: Remdesivir 100 mg/ Sodium (Chloride) 250 mls @ 250 mls/hr IV Q24H [facility]; Protocol Stop: 07/10/21 12:59 Miscellaneous (Order Awaiting Action) 1 ea N/A QS [facility] Stop: 08/05/21 15:59 Last Admin: 07/07/21 07:55 Dose: Not Given Documented by: Ondansetron HCl (Ondansetron Inj 2 Mg/Ml 2 Ml Vial) 4 mg IV Q6H PRN PRN Reason: Nausea Stop: 08/05/21 15:46 Pantoprazole Sodium (Pantoprazole 40 Mg Tab) 40 mg PO QAM [facility] Stop: 08/06/21 08:59 Last Admin: 07/07/21 07:58 Dose: 40 mg Documented by: Polyethylene Glycol (Polyethylene (Miralax) 17 Gm Pack) 17 gm PO DAILY PRN PRN Reason: Constipation Stop: 08/05/21 15:46 Sodium Chloride (Sodium Chloride 0.9% 10ml Flush) 30 ml IV Q24H [facility] Stop: 07/10/21 13:01 Tamoxifen Citrate (Tamoxifen Citrate 10 Mg Tablet) 20 mg PO QAM [facility] Stop: 08/06/21 08:59 Last Admin: 07/07/21 07:56 Dose: 20 mg Documented by: PG Care Time/CCT Total # of Minutes Spent Total Time Spent with Patient: Total time spent is greater than 50% in coordination of care (as documented) at patient's floor/unit and/or counseling patient: Coding Level of Care Code 36063 Subseq Hosp Care Lvl 2 Diagnoses COVID-19 U07.1 UTI (urinary tract infection) N39.0 Hypercholesterolemia E78.00 Anxiety F41.9 History of breast cancer Z85.3 Acute respiratory failure with hypoxia J96.01
[2021-07-07] MEDS: REMDESIVIR 100 MG in SODIUM CHLORIDE 0.9% 230 ML IV SCH (12:26)
[2021-07-07] MEDS: SODIUM CHLORIDE 0.9% 10ML FLUSH IV SCH (13:27)
[2021-07-08 05:53] LABS: Basophils # (auto) 0.02 K/uL (0-0.2); Basophils % (auto) 0.3 %; Eosinophils # (auto) 0.03 K/uL (0-0.5); Eosinophils % (auto) 0.4 %; Hematocrit (blood only) 35.4 % (37-47); Hemoglobin 12.1 g/dL (12.0-16.0); Immature Granulocytes # (auto) 0.02 K/uL (0.00-0.02); Immature Granulocytes % (auto) 0.3 %; Lymphocytes # (auto) 1.98 K/uL (1.2-3.4); Lymphocytes % (auto) 26.6 %; Mean Corpuscular Hgb Conc 34.2 g/dL (32-36); Mean Corpuscular Volume 87.8 fL (80-100); Monocytes # (auto) 0.57 K/uL (0.11-0.59); Monocytes % (auto) 7.7 %; Neutrophils # (auto) 4.83 K/uL (1.4-6.5); Neutrophils % (auto) 64.7 %; Platelet Count 369 K/uL (130-400); RDW Standard Deviation 42.3 fL (36.4-46.3); Red Blood Count 4.03 M/uL (4.2-5.4); White Blood Count 7.45 K/uL (4.8-10.8)
[2021-07-08 06:19] LABS: Albumin Level 2.7 gm/dl (3.4-5.0); BUN Creatinine Ratio 28.4 (10-20); Calcium 8.6 mg/dl (8.5-10.1); Creatinine Clr Calc Pharmacy 94.6 ml/min; Est GFR (African American) 109.9 ml/min; Est GFR (Non-African American) 94.8 ml/min; Potassium 3.6 mmol/L (3.5-5.1)
[2021-07-08 06:21] LABS: Albumin Globulin Ratio 0.7 (0.9-2); Bilirubin,Total 0.5 mg/dl (0.2-1); Globulin 3.7 gm/dl (2.5-4.0); Total Protein 6.4 gm/dl (6.4-8.2)
[2021-07-08] MEDS: busPIRone 5 MG TAB PO SCH ×2 (08:18→13:08)
[2021-07-08] MEDS: TAMOXIFEN CITRATE 10 MG TABLET PO SCH (08:18)
[2021-07-08] MEDS: ENOXAPARIN INJ 40 MG/0.4 ML SYR SQ SCH (08:19)
[2021-07-08] MEDS: PANTOprazole 40 MG TAB PO SCH (08:19)
[2021-07-08] MEDS: ATORVASTATIN 20 MG TAB PO SCH (08:19)
[2021-07-08] MEDS: dexAMETHasone 6 MG in SYRINGE 0 ML IV SCH (08:19)
[2021-07-08] MEDS: REMDESIVIR 100 MG in SODIUM CHLORIDE 0.9% 230 ML IV SCH (12:07)
[2021-07-08] MEDS: SODIUM CHLORIDE 0.9% 10ML FLUSH IV SCH (13:08)
--- NOTE | 2021-07-08 13:19 | Discharge Summary ---
Date of Service July 08, 2021 Admission HPI Per Admitting Provider Luda Molina is a 60 year old female who presents to the ER with rash, shortness of breath and fatigue. She is unvaccinated for COVID-19. She reports her symptoms started this morning on waking up. Although initial symptoms started with lower abdominal and back pain on Monday and she went to [facility] as she though she had a UTI. No dysuria, fever or chills. She reportedly tested positive on UA and was started on Pyridium and Macrobid. Her symptoms initially were improving until today. She thought she may be having an allergic reaction to the nitrofurantoin therefore on calling her PCP was advised to come to the ER. She denies any fever, chills, sinus pain, chest pain, abdominal pain, nausea, vomiting, diarrhea or constipation. She does report a mild dry cough. No rash was noticed by the ER physician or myself. In the ER CXR and CT were consisted with COVID-19, SARS-COV-2 PCR positive. She was started on dexamethasone as requiring 2LPM O2 to maintain O2 sats > 94% and referred to medicine for admission and ongoing management of COVID-19. Principal Diagnosis COVID 19 pneumonia, acute hypoxic respiratory failure Discharge Exam General: well developed, well nourished, no acute distress, comfortable Neck: supple, trachea midline, normal thyroid Lungs: clear to auscultation bilaterally, normal respiratory effort, no accessory muscle use, no distress Heart: regular S1 and S2, no murmur, peripheral pulses normal, capillary refill normal, no edema Abdomen: soft, NT, ND, + BS, no hepatomegaly, normal to percussion Extremities: normal in appearance, no cyanosis, no petechiae, strength is 5/5 bilaterally Neuro: awake, cooperative, moves all extremities, no focal motor deficits, CN II-XII intact, sensation in extremities intact, normal speech Skin: warm, dry, no rash, normal turgor Psych: Awake, alert oriented x 3, euthymic affect Discharge Data Allergies Allergy/AdvReac Type Severity Reaction Status Date / Time nut - unspecified Allergy Unknown SORE MOUTH Verified 07/06/21 12:34 AND THROAT EDEMA AURY. WITH W[employer]UTS sulfur colloidal(sulfur Allergy Severe erythema, Uncoded 07/06/21 12:34 sublimed) edema, rash Lisinopril TABS AdvReac Mild Cough Uncoded 07/06/21 12:34 Consultations 07/06/21 13:08 ED Decision to Admit Stat 07/06/21 14:10 Consult Health Information Management Stat Ordered Studies 07/06/21 12:00 CT angio chest PE protocol Stat Hospital Course (1) COVID-19: Dexamethasone 6mg IV daily, day 3 Remdesivir daily, day 3 incentive spirometer supplemental oxygen, required 2L but down to room air at rest and on ambulation discharge home on 7 more days of dexamethasone will take Xarelto 10mg daily to prevent VTE with COVID stay in isolation 11-12 days from initial symptoms monitor for any worsening shortness of breath (2) Acute respiratory failure with hypoxia: required 2L NC at maximum titrated down to room air 2 step showed that she stayed at 89% even with ambulation, no need for home oxygen monitor for any worsening dyspnea at home (3) UTI (urinary tract infection): Possible diagnosis as UA positive at [facility] on Sat with symptoms suggestive of this. UA negative on admission, she completed 3 days of Macrobid Will hold on antibiotics at the current time (4) Hypercholesterolemia: Continue aotrvastatin 20mg PO daily (5) Anxiety: Continue Buspar 10mg PO TID and hydroxyzine PRN (6) History of breast cancer: Lumpectomy on left side around 10 years ago. On tamoxifen since then. Will continue. VTE Prophylaxis - Lovenox 40mg SQ BID, change to Xarelto 10mg daily on d ischarge Diet - regular Disposition - admit to med/surg Total Time Total Time Spent Total Time Spent (In Minutes): 32 minutes Total Time Includes: Examination of the Patient, Discharge Planning and Medication Reconciliation Discharge Plan Discharge Items Patient Disposition: Home - Self-Care Reason For Visit: COVID-19 PNEUMONIA, ACUTE HYPOXIC RESPIRATORY FAIL Discharge Diagnosis: COVID 19 pneumonia Acute hypoxic respiratory failure Condition on Discharge: Good Goals: complete course of dexamethasone take Xarelto to prevent blood clots Activity: Resume your previous activity Weightbearing: Full weightbearing Non-emergency contact: Primary Care Provider Call non-emergency contact if: you have any medication questions, your symptoms worsen and you have a fever Follow-up/Referrals: Andrade Johnson DO [Primary Care Provider] - 07/19/21 4:00 pm () Diet: Regular Addtl Attending Provider Instructions: Medications: - DEXAMETHASONE: 6mg daily for 7 more days, start tomorrow morning, this is treatment for COVID 19 - XARELTO: 10mg daily for 30 days, this is low dose anticoagulation to prevent blood clots as you recover from COVID 19 COVID 19 pneumonia, acute hypoxic respiratory failure responded well to dexamethasone and Remdesivir, titrated off of oxygen ambulated well this afternoon, technically you did not require oxygen, lowest you dropped was 89% you will need to finish 7 days of dexamethasone take Xarelto to prevent blood clots stay well nourished, well rested recommend you stay in isolation 11-12 days from onset of symptoms follow up with PCP next week Pending Studies at Discharge: No Stand-Alone Forms: My [facility], Work/School Release, Smoking Cessation Medications and DC Order Prescriptions: New dexamethasone 4 mg tablet 6 mg PO DAILY 7 Days Qty: 11 RF: 0 Xarelto 10 mg tablet 10 mg PO DAILY 30 Days Qty: 30 RF: 0 Continued buspirone 10 mg tablet 10 mg PO TID Qty: 270 RF: 3 clobetasol 0.05 % solution 1 applic topical DAILY PRN (Reason: psoriasis) Qty: 50 RF: 0 hydroxyzine HCl 25 mg tablet 25 mg PO QID Qty: 120 RF: 5 phenazopyridine 200 mg tablet 200 mg PO BID RF: 0 atorvastatin 20 mg tablet 20 mg PO QAM RF: 0 omeprazole 20 mg capsule,delayed release(DR/EC) 20 mg PO QAM RF: 0 tamoxifen 20 mg tablet 20 mg PO QAM RF: 0 Discontinued nitrofurantoin monohyd/m-cryst [Macrobid] 100 mg capsule 100 cap PO BID RF: 0 Discharge Orders: Discharge Order (Routine); Ordered 07/08/21 Ordered By: Michael Patel/Other Patient Handouts: COVID-19 Home Care Admission Data Admit Date/Time: 07/06/21 14:03 Attending Provider: Michael Eddy Admit Provider: Huey Cortes Primary Care Provider: Andrade Johnson Other Providers: Huey Cortes Other Interventions: Discharge Summary Assessment (RN) Last Done: 07/08/21 13:23 Coding Level of Care Code D/C DAY MANAGEMENT >30 MINS Diagnoses COVID-19 U07.1 Acute respiratory failure with hypoxia J96.01 UTI (urinary tract infection) N39.0 Hypercholesterolemia E78.00 Anxiety F41.9 History of breast cancer Z85.3
== END 2021-07-08 16:28 | disposition home or self-care (01) | DRG 177 ==
LOC: ED 10:52 → 3W 14:03 → SUATTDRO 14:03 → 3W 15:00